=== PATIENT | male | born 1945 | race American Indian/Alaskan Native ===

== ENCOUNTER 2020-12-04 08:20 | Emergency (ER) | payer MEDICARE ==
--- NOTE | 2020-12-04 10:33 | Emergency Department Report ---
ED General Adult HPI - General Chief complaint: Medical Clearance Stated complaint: DISLODGED TRACH TUBE Time Seen by Provider: 12/04/20 09:10 Source: patient Mode of arrival: Stretcher Limitations: No Limitations - History of Present Illness Initial comments: The patient presents to the emergency department from a local longterm for evaluation of his tracheostomy. Patient states his tracheostomy Yancy has been out for the last 2 months. Patient denies any issues with breathing and is able to communicate with me without issue. Patient denies any pain. -: unknown Severity scale (0 -10): 0 Improves with: none Worsens with: none Associated Symptoms: denies other symptoms Treatments Prior to Arrival: none ED Review of Systems ROS: Stated complaint: DISLODGED TRACH TUBE Other details as noted in HPI Comment: All other systems reviewed and negative Constitutional: denies: chills, fever Eyes: denies: eye pain, eye discharge, vision change ENT: denies: ear pain, throat pain Respiratory: denies: cough, shortness of breath, wheezing Cardiovascular: denies: chest pain, palpitations Endocrine: no symptoms reported Gastrointestinal: denies: abdominal pain, nausea, diarrhea Genitourinary: denies: urgency, dysuria Musculoskeletal: denies: back pain, joint swelling, arthralgia Skin: denies: rash, lesions Neurological: denies: headache, weakness, paresthesias Psychiatric: denies: anxiety, depression Hematological/Lymphatic: denies: easy bleeding, easy bruising ED Past Medical Hx - Past Medical History Previous Medical History?: Yes Hx Hypertension: Yes Additional medical history: ARF with hypoxia. anemia. 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 Absent: respiratory distress - Cardiovascular Cardiovascular Exam: Present: regular rate, normal rhythm. Absent: systolic murmur, diastolic murmur, rubs, gallop - GI/Abdominal GI/Abdominal exam: Present: soft, normal bowel sounds - Rectal Rectal exam: Present: deferred - Extremities Exam Extremities exam: Present: normal inspection - Back Exam Back exam: Present: normal inspection - Neurological Exam Neurological exam: Present: alert, oriented X3 - Psychiatric Psychiatric exam: Present: normal affect, normal mood - Skin Skin exam: Present: warm, dry, intact, normal color. Absent: rash ED Course Vital Signs 12/04/20 12/04/20 12/04/20 08:28 08:54 08:55 Temperature 98.7 F Pulse Rate 86 Respiratory 18 Rate Blood Pressure Blood Pressure 128/94 [Right] O2 Sat by Pulse 100 99 Oximetry 12/04/20 12/04/20 12/04/20 09:01 09:15 09:31 Temperature Pulse Rate Respiratory Rate Blood Pressure 104/67 97/68 109/68 Blood Pressure [Right] O2 Sat by Pulse 100 100 99 Oximetry 12/04/20 12/04/20 09:45 10:15 Temperature Pulse Rate Respiratory Rate Blood Pressure 93/63 103/69 Blood Pressure [Right] O2 Sat by Pulse 100 100 Oximetry ED Medical Decision Making - Radiology Data Radiology results: report reviewed Critical care attestation.: If time is entered above; I have spent that time in minutes in the direct care of this critically ill patient, excluding procedure time. ED Disposition Clinical Impression: Tracheostomy care Disposition: DC-01 TO HOME OR SELFCARE Is pt being admited?: No Does the pt Need Aspirin: No Condition: Stable Instructions: How to Clean a Tracheostomy and Replace Tracheostomy Ties, Adult, How to Change a Cuffless Tracheostomy Tube, Adult Additional Instructions: Return if worse or difficulty with breathing Referrals: YNES WILLIAMSON MD [Primary Care Provider] - 3-5 Days
[2020-12-04 11:06] VITALS: BP 115/69
== END 2020-12-04 11:06 | disposition home or self-care (01) ==
LOC: ED 08:20
DX: I10 Essential (primary) hypertension (principal); Z43.6 Encounter for attention to other artificial openings of urinary tract; Z79.899 Other long term (current) drug therapy
CPT/HCPCS: 99283

== ENCOUNTER 2021-03-15 07:34 | Outpatient (CLI) | payer MEDICARE ==
--- NOTE | 2021-03-15 11:46 | PET Report ---
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 The patient weighed 140 lbs. The patient wa s injected with 13.4 mCi of FDG in the right forearm at 0853 hours and imaging was started at 0950 ho urs. The patient was imaged from the skull base to the thighs. All CT scans at this location are per formed using CT dose reduction for ALARA by means of automated exposure control. Images were reviewed on a workstation. COMPARISON: None at this facility FINDINGS: IMAGED BRAIN: Physiologic FDG uptake. NECK: There is an approximate 4.0 x 3.4 cm soft tissue density mass or coalescent adenopathy in the r ight side of the neck which appears to be continuous with the right side of the larynx. There is obli teration of the right piriform sinus. Max SUV measures 4.2. There is uptake along the left side of th e larynx which is thought to be physiologic with max SUV measuring 4.8. No discrete mass in this area . CHEST WALL: Physiologic FDG uptake. MEDIASTINUM: Physiologic FDG uptake. LUNGS: Physiologic FDG uptake. No suspicious pulmonary nodule is detected. HEPATOBILIARY: Physiologic FDG uptake. PANCREAS: A 2.2 cm hypodense lesion is identified in the tail of the pancreas which is markedly hype rmetabolic with max SUV measuring 15.1. SPLEEN: Physiologic FDG uptake. KIDNEYS/BLADDER: Physiologic FDG uptake. Bilateral renal cysts are noted. ADRENAL GLANDS: Physiologic FDG uptake. GI/MESENTERY: Physiologic FDG uptake. PELVIC VISCERA: Physiologic FDG uptake. LYMPH NODES: Physiologic FDG uptake. OSSEOUS STRUCTURES: Physiologic FDG uptake. ADDITIONAL FINDINGS: None. IMPRESSION: 4.0 x 3.0 cm mildly hypermetabolic right neck mass or adenopathy as described with max SUV measuring 4.2. 2.2 cm hypermetabolic lesion in the tail of the pancreas. Consider further evaluation with CT or MRI with and without contrast, pancreas protocol. Pancreatic neoplasm cannot be excluded. Less likely a m etastatic lesion could be considered. Signer Name: Wyatt Cowart Jr, MD Signed: 03/15/2021 11:41 AM Workstation Name: [id number]
== END 2021-03-15 07:35 | disposition home or self-care (01) ==
LOC: PET 07:34
PROVIDERS: ATTEND Radiology Radiation Oncology
DX: C32.1 Malignant neoplasm of supraglottis (principal); K86.9 Disease of pancreas, unspecified
CPT/HCPCS: 78815; 82962; A9552

== ENCOUNTER 2021-04-20 10:51 | Outpatient (CLI) | payer MEDICARE ==
[2021-04-20 12:12] LABS: Blood Urea Nitrogen 22 mg/dL (9-20)
--- NOTE | 2021-04-20 15:10 | Cat Scan Report ---
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 TECHNIQUE: Axial CT images were obtained through the abdomen before and after IV contrast. All CT sca ns at this location are performed using CT dose reduction for ALARA by means of automated exposure co ntrol. COMPARISON: None available. FINDINGS: LOWER CHEST: Lung bases are clear LIVER: No significant abnormality. GALLBLADDER: No significant abnormality. BILE DUCTS: No significant abnormality. PANCREAS: Multiple calcifications are seen near the head of the pancreas which could represent chroni c pancreatitis. SPLEEN: No significant abnormality. ADRENALS: No significant abnormality. RIGHT KIDNEY / URETER: Multiple right renal cyst. Nonobstructing right renal stone measures to 3 mm. LEFT KIDNEY / URETER: Multiple left renal cyst. STOMACH / SMALL BOWEL: No significant abnormality. COLON: No significant abnormality. APPENDIX: No significant abnormality. PERITONEUM: No free fluid. No free air. No fluid collection. LYMPH NODES: No significant adenopathy. AORTA / ARTERIES: No significant abnormality. IVC / VEINS: No significant abnormality. ADDITIONAL FINDINGS: Transabdominal fragments of the abdomen and pelvis. SKELETAL SYSTEM: No signific ant abnormality. IMPRESSION: 1. There are calcifications within the head of the pancreas suggesting chronic pancreatitis. No well- defined mass in the tail the pancreas however the tail is very difficult to visualize due to large le ft renal cyst and surrounding bowel loops. Follow-up with PET/CT. 2. Bilateral renal cysts. Signer Name: Yvan Birmingham MD Signed: 04/20/2021 3:06 PM Workstation Name: [id number]
== END 2021-04-20 10:52 | disposition home or self-care (01) ==
LOC: CT 10:51
PROVIDERS: ATTEND Radiology Radiation Oncology
DX: C32.1 Malignant neoplasm of supraglottis (principal); N28.1 Cyst of kidney, acquired
CPT/HCPCS: 36415; 74170; 82565; 84520; Q9967